=== PATIENT | male | born 1995 | race Caucasian/White ===

== ENCOUNTER 2017-10-13 17:00 | Emergency (ER) | payer OTHER ==
[~2017-10-13] VITALS: Ht 175.3 cm; Wt 104.3 kg
[~2017-10-13 17:00] MED LIST: CIPROFLOXIN HC2.5 M1 OPHTHALMIC
[2017-10-13] MEDS ORDERED: ULTRAM 50MG TAB50 MG PO (18:14)
[2017-10-13] MEDS ORDERED: NORFLEX100 MG PO (18:14)
[2017-10-13 18:24] VITALS: BP 110/69
== END 2017-10-13 18:24 | disposition home or self-care (01) ==
LOC: M.ERS 17:00
DX: M54.9 Dorsalgia, unspecified (principal); F17.200 Nicotine dependence, unspecified, uncomplicated